=== PATIENT | female | born 1960 | race Caucasian/White ===

== ENCOUNTER → 2016-11-17 13:09 | Outpatient (CLI) | payer BC ==
[2016-10-18 13:53] VITALS: BMI 41.6
[~2016-11-17 13:09] MED LIST: ASPIRIN81 MG PO; CEFUROXIME250 MG PO; HCTZ25 MG PO; KLONOPIN1 MG PO; METOPROLOL TART50 MG PO; PERCOCET 5-3251 TAB PO; PROZAC20 MG PO; XARELTO20 MG PO
== END | disposition home or self-care (01) ==
LOC: D.MRI 13:09
DX: F07.81 Postconcussional syndrome (principal)

== ENCOUNTER 2020-03-18 09:00 | Outpatient (CLI) | payer BC ==
[2016-10-18 13:53] VITALS: BMI 41.6
== END 2020-03-18 10:00 | disposition home or self-care (01) ==
LOC: D.MAMMO 09:00
PROVIDERS: ATTEND Family Medicine
DX: Z12.31 Encounter for screening mammogram for malignant neoplasm of breast (principal)